=== PATIENT | male | born 1985 | race American Indian/Alaskan Native ===

== ENCOUNTER 2018-11-22 08:34 | Emergency (ER) | payer SELFPAY ==
[2018-11-22 09:08] VITALS: BP 172/100
[2018-11-22 09:52] LABS: Alanine Aminotransferase 24 units/L (7-56); Albumin 3.9 g/dL (3.9-5); BUN/Creatinine Ratio 11; Blood Urea Nitrogen 11 mg/dL (9-20); Calcium 8.9 mg/dL (8.4-10.2); Hemolysis Index 22
[2018-11-22 09:57] LABS: Bilirubin,Urine NEG (Negative); Blood,Urine NEG (Negative); Color,Urine Yellow (Yellow); Protein,Urine <15 mg/dL mg/dL (Negative); RBC,Urine < 1.0 /HPF (0.0-6.0); Urobilinogen,Urine < 2.0 mg/dL (<2.0); WBC,Urine < 1.0 /HPF (0.0-6.0)
[2018-11-22 10:01] LABS: Hematocrit 43.4 % (35.5-45.6); Hemoglobin 14.8 gm/dl (11.8-15.2); Mean Corpuscular HGB Conc 34 % (32-34); Mean Corpuscular Volume 87 fl (84-94); Platelet Count 210 K/mm3 (140-440); Red Blood Count 4.97 M/mm3 (3.65-5.03); Red Cell Distribution Width 14.1 % (13.2-15.2)
[2018-11-22 10:06] LABS: Basophils # (Auto) 0.1 K/mm3 (0.0-0.1); Basophils % (Auto) 1.3 % (0.0-1.8); Eosinophils # (Auto) 0.1 K/mm3 (0.0-0.4); Eosinophils % (Auto) 2.4 % (0.0-4.3); Lymphocytes # (Auto) 2.1 K/mm3 (1.2-5.4); Lymphocytes % (Auto) 41.5 % (13.4-35.0); Monocytes # (Auto) 0.4 K/mm3 (0.0-0.8); Monocytes % (Auto) 8.1 % (0.0-7.3)
--- NOTE | 2018-11-22 10:53 | Ultrasound Report ---
ULTRASOUND TESTICULAR DOPPLER COMPLETE History: Left testicular tenderness and pain. Technique: Trans-scrotal ultrasound with spectral doppler interrogation. Findings: Both testes and epididymides are normal size, contour and echotexture. No hydrocele or varicocele. No mass or pathologic calcifications. Doppler interrogation depicts symmetric arterial flow to both testes. IMPRESSION: Unremarkable testicular ultrasound.
--- NOTE | 2018-11-22 11:09 | Emergency Department Report ---
ED Male HPI - General Chief complaint: Abdominal Pain Stated complaint: (L) SIDE KIDNEY PAIN/ABD PAIN Time Seen by Provider: 11/22/18 09:47 Source: patient Mode of arrival: Ambulatory Limitations: No Limitations - History of Present Illness Initial comments: 33-year-old -[place] male with a past medical history of hypertension comes in complaining of abdominal pain and hard to urinate that started 2 days ago. Patient reports he feels like his left testicle has pressure is constant and is worse with lying down and trying to go to be. He denies any penile discharge no dysuria. Patient reports his been out of his blood pressure medicine for about a month he currently takes lisinopril 20 mg daily. His primary care provider is Dr. Casie Hollis. Complaint: testicle pain Onset/Timin -: days(s) Location: left testicle Severity scale (0 -10): 6 Quality: sharp, stabbing Consistency: constant Improves with: none Worsens with: palpation, other (lying down) urinary retention. denies: discharge, swelling, mass, blood in urine, dysuria, fever, nausea/vomiting, incontinence - Related Data Previous Rx's Medication Instructions Recorded Last Taken Type Ibuprofen [Motrin 800 MG tab] 800 mg PO Q8HR PRN #30 tablet 11/22/18 Unknown Rx Lisinopril [Zestril TAB] 20 mg PO QDAY #30 tablet 11/22/18 Unknown Rx Allergies Allergy/AdvReac Type Severity Reaction Status Date / Time No Known Allergies Allergy Unverified 11/22/18 08:39 ED Review of Systems ROS: Stated complaint: (L) SIDE KIDNEY PAIN/ABD PAIN Other details as noted in HPI Comment: All other systems reviewed and negative ED Past Medical Hx - Past Medical History Hx Hypertension: Yes - Surgical History Past Surgical History?: No - Social History Smoking Status: Never Smoker Substance Use Type: None - Medications Home Medications: Home Medications Medication Instructions Recorded Confirmed Last Taken Type Ibuprofen [Motrin 800 MG tab] 800 mg PO Q8HR PRN #30 tablet 11/22/18 Unknown Rx Lisinopril [Zestril TAB] 20 mg PO QDAY #30 tablet 11/22/18 Unknown Rx ED Physical Exam - General Limitations: No Limitations General appearance: alert, in no apparent distress - Head Head exam: Present: atraumatic, normocephalic - Eye Eye exam: Present: normal appearance - ENT ENT exam: Present: mucous membranes moist - GI/Abdominal GI/Abdominal exam: Present: soft. Absent: distended, tenderness - exam: Present: testicular tenderness (left), other (left inguinal lymph tenderness). Absent: circumcision ED Course Vital Signs 11/22/18 09:05 Temperature 98.1 F Pulse Rate 65 Respiratory 18 Rate Blood Pressure 172/100 O2 Sat by Pulse 98 Oximetry ED Medical Decision Making - Lab Data Result diagrams: 11/22/18 09:18 11/22/18 09:18 - Radiology Data Radiology results: report reviewed Patient: ZHANG JAY MR#: [id number] : 1985 Acct:[id number] Age/Sex: 33 / M ADM Date: 11/22/18 Loc: ED Attending Dr: Ordering Physician: RASHMI SALAZAR Date of Service: 11/22/18 Procedure(s): US testicular doppler comp Accession Number(s): [id number] cc: RASHMI SALAZAR ULTRASOUND TESTICULAR DOPPLER COMPLETE History: Left testicular tenderness and pain. Technique: Trans-scrotal ultrasound with spectral doppler interrogation. Findings: Both testes and epididymides are normal size, contour and echotexture. No hydrocele or varicocele. No mass or pathologic calcifications. Doppler interrogation depicts symmetric arterial flow to both testes. IMPRESSION: Unremarkable testicular ultrasound. Transcribed By: TTR Dictated By: KIMBERLY CAMPUZANO JR, MD Electronically Authenticated By: KIMBERLY CAMPUZANO JR, MD Signed Date/Time: 11/22/18 104 DD/ 1047 TD/TT: 11/22/18 1047 Ordering Physician: RASHMI SALAZAR Date of Service: 11/22/18 Procedure(s): CT abdomen pelvis wo con Accession Number(s): [id number] cc: RASHMI SALAZAR PROCEDURE: CT ABDOMEN PELVIS WO CON TECHNIQUE: Computerized axial tomography of the abdomen and pelvis was performed without intravenous contrast. This study is performed without intravascular contrast material and its sensitivity for abdominal and pelvic pathology, including neoplasms, inflammation, abscess, free fluid, thrombosis, arterial dissection and infarction, is reduced compared with a contrast enhanced study. CT DOSE LENGTH PRODUCT: 2089 mGycm HISTORY: left flank pain that radiates to the testicle COMPARISONS: None . FINDINGS: Visualized lower thorax: No significant abnormality. Liver: Decreased attenuation of the hepatic parenchyma. No focal intrarenal lesion. Spleen: Normal size and attenuation. Gallbladder and biliary system: Normal. Pancreas: Normal. Adrenals: Normal. Kidneys: No hydronephrosis. No renal or ureteral calculi. GI tract: No focal thickening. No evidence of obstruction. Lymph nodes and mesentery: Normal. Vasculature: Normal.. Bladder: Normal. Reproductive organs: Normal. Peritoneum: No free fluid. Musculoskeletal structures: No significant abnormality. Other: None. IMPRESSION: No acute intra-abdominal pathology. No renal or ureteral calculi. No hydronephrosis. Mild hepatic steatosis. This document is electronically signed by Katey Aguilar MD., November 22 2018 11:56:18 AM ET Transcribed By: JOSE Dictated By: KATEY AGUILAR MD Electronically Authenticated By: KATEY AGUILAR MD Signed Date/Time: 11/22/18 1158 DD/ 1116 TD/TT: 11/22/18 1116 - Medical Decision Making 33-year-old -[place] male comes in with left flank pain that radiates to left lower pelvic and left testicle. Ultrasound is unremarkable CT unremarkable with no hydronephrosis or renal calculi. Urinalysis unremarkable. Patient be discharged home with ibuprofen and a follow-up to urology. Critical care attestation.: If time is entered above; I have spent that time in minutes in the direct care of this critically ill patient, excluding procedure time. ED Disposition Clinical Impression: Acute left flank pain, Testicle tenderness, HTN, goal below 130/80 Disposition: DC-01 TO HOME OR SELFCARE Is pt being admited?: No Does the pt Need Aspirin: No Condition: Stable Instructions: Hypertension (ED) Additional Instructions: Please take ibuprofen as needed for pain. Take your blood pressure medications as prescribed. Follow-up to primary care provider in the next 2 weeks. Also follow up with the urologist I have listed information below for your co nvenience. Prescriptions: Ibuprofen [Motrin 800 MG tab] 800 mg PO Q8HR PRN #30 tablet PRN Reason: Pain , Severe (7-10) Lisinopril [Zestril TAB] 20 mg PO QDAY #30 tablet Referrals: Your, Provider [Other] - 3-5 Days ZINA ALBERTO MD [Staff Physician] - 3-5 Days
--- NOTE | 2018-11-22 11:58 | Cat Scan Report ---
PROCEDURE: CT ABDOMEN PELVIS WO CON TECHNIQUE: Computerized axial tomography of the abdomen and pelvis was performed without intravenous contrast. This study is performed without intravascular contrast material and its sensitivity for ab dominal and pelvic pathology, including neoplasms, inflammation, abscess, free fluid, thrombosis, art erial dissection and infarction, is reduced compared with a contrast enhanced study. CT DOSE LENGTH PRODUCT: 2089 mGycm HISTORY: left flank pain that radiates to the testicle COMPARISONS: None . FINDINGS: Visualized lower thorax: No significant abnormality. Liver: Decreased attenuation of the hepatic parenchyma. No focal intrarenal lesion. Spleen: Normal size and attenuation. Gallbladder and biliary system: Normal. Pancreas: Normal. Adrenals: Normal. Kidneys: No hydronephrosis. No renal or ureteral calculi. GI tract: No focal thickening. No evidence of obstruction. Lymph nodes and mesentery: Normal. Vasculature: Normal.. Bladder: Normal. Reproductive organs: Normal. Peritoneum: No free fluid. Musculoskeletal structures: No significant abnormality. Other: None. IMPRESSION: No acute intra-abdominal pathology. No renal or ureteral calculi. No hydronephrosis. Mild hepatic steatosis. This document is electronically signed by Katey Carrion MD., November 22 2018 11:56:18 AM ET
== END 2018-11-22 12:28 | disposition home or self-care (01) ==
LOC: ED 08:34
DX: N50.812 Left testicular pain (principal); R10.9 Unspecified abdominal pain; I10 Essential (primary) hypertension
CPT/HCPCS: 36415; 74176; 80053; 81001; 85025; 87591; 93975